=== PATIENT | male | born 1945 | race Caucasian/White ===

== ENCOUNTER 2019-02-24 11:29 | Emergency (ER) | payer MEDICARE, OTHER ==
--- NOTE | 2019-02-24 12:37 | EDM.PDOC ---
ED HPI GENERAL MEDICAL PROBLEM - General Chief Complaint: Lower Extremity Injury/Pain Stated Complaint: TWISTED RT KNEE GOING UP STAIRS Time Seen by Provider: 02/24/19 11:47 - History of Present Illness INITIAL COMMENTS - FREE TEXT/NARRATIVE: was getting up to go up stairs and felt a pop to his right knee and then severe pain. Has been using ibuprofen for pain. Hurts to bear weight Hx of surgery to this knee Is from [place]. No PCP here; will be here until mid March. Duration: Day(s): (1) Location: Reports: Lower Extremity, Right Quality: Reports: Sharp, Throbbing Severity: Moderate Improves with: Reports: None Worsens with: Reports: None - Related Data Allergies Allergy/AdvReac Type Severity Reaction Status Date / Time nafcillin Allergy Swelling Verified 02/24/19 12:16 rifamycin Allergy Swelling Verified 02/24/19 12:16 Home Meds: Home Meds Aspirin 02/24/19 [History] Atenolol 02/24/19 [History] Benazepril [Lotensin] 02/24/19 [History] Gabapentin [Neurontin] 02/24/19 [History] Glucosamine Sulfate 02/24/19 [History] Hyoscyamine Sulfate 02/24/19 [History] Levothyroxine 02/24/19 [History] Pioglitazone [Actos] 02/24/19 [History] Sildenafil [Revatio] 02/24/19 [History] SitaGLIPtin [Januvia] 02/24/19 [History] Sotalol [Betapace] 02/24/19 [History] amLODIPine Besylate [Amlodipine Besylate] 02/24/19 [History] glipiZIDE [Glucotrol XL] 02/24/19 [History] Past Medical History Cardiovascular History: Reports: High Cholesterol, Hypertension, Pacemaker Endocrine/Metabolic History: Reports: Diabetes, Type II - Past Surgical History HEENT Surgical History: Reports: Tonsillectomy GI Surgical History: Reports: Appendectomy, Hernia Repair/Other Musculoskeletal Surgical History: Reports: Arthroscopic Knee, Shoulder Surgery Social & Family History - Tobacco Use Smoking Status *Q: Never Smoker Review of Systems - Review of Systems Review Of Systems: ROS reveals no pertinent complaints other than HPI. Constitutional: Reports: No Symptoms Respiratory: Reports: No Symptoms Cardiovascular: Reports: No Symptoms Genitourinary: Reports: No Symptoms Musculoskeletal: Reports: Joint Pain Skin: Reports: No Symptoms Neurological: Reports: No Symptoms Psychiatric: Reports: No Symptoms ED EXAM, GENERAL - Physical Exam Exam: See Below Exam Limited By: No Limitations General Appearance: Alert, WD/WN, No Apparent Distress Head: Atraumatic, Normocephalic Neck: Supple, Full Range of Motion Respiratory/Chest: Lungs Clear, Normal Breath Sounds Cardiovascular: Regular Rate, Rhythm Peripheral Pulses: 4+: Posterior Tibial (R), Dorsalis Pedis (R) Extremities: Normal Inspection, Limited Range of Motion, Other (+dp and pt pulses, neg ant drawer, +cms) Neurological: Alert, Oriented, CN II-XII Intact Psychiatric: Normal Affect, Normal Mood Skin Exam: Warm, Dry, Intact Course - Vital Signs Last Recorded V/S: Last Vital Signs Temp 95.5 F 02/24/19 12:22 Pulse 73 02/24/19 12:22 Resp 20 02/24/19 12:22 BP 146/86 H 02/24/19 12:22 Pulse Ox 97 02/24/19 12:22 - Orders/Labs/Meds Orders: Active Orders 24 hr Category Date Time Status Knee 3V Rt [CR] Stat Exams 02/24/19 12:32 Taken Departure - Departure Time of Disposition: 14:00 Disposition: Home, Self-Care 01 Condition: Good Clinical Impression: Right knee pain Qualifiers: Chronicity: acute Qualified Code(s): M25.561 - Pain in right knee - Discharge Information *PRESCRIPTION DRUG MONITORING PROGRAM REVIEWED*: Not Applicable *COPY OF PRESCRIPTION DRUG MONITORING REPORT IN PATIENT LADI: Not Applicable Instructions: Knee Pain, Adult Referrals: PCP,None [Primary Care Provider] - Forms: ED Department Discharge Additional Instructions: Please call for follow up appointment on Tuesday; ([phone] [facility]) Shoot for appt within the next 7-10 days Ice for swelling/pain control Ibuprofen for pain/ Tylenol can be used as well. Call with questions. Use immobilizer until you are told otherwise. - Problem List & Annotations (1) Right knee pain SNOMED Code(s): 23271753 Code(s): M25.561 - PAIN IN RIGHT KNEE Status: Acute Priority: Low Qualifiers: Chronicity: acute Qualified Code(s): M25.561 - Pain in right knee - Problem List Review Problem List Initiated/Reviewed/Updated: Yes - My Orders Last 24 Hours: My Active Orders 02/24/19 12:32 Knee 3V Rt [CR] Stat - Assessment/Plan Last 24 Hours: My Active Orders 02/24/19 12:32 Knee 3V Rt [CR] Stat
--- NOTE | 2019-02-24 15:22 | CRLCR ---
HISTORY: Knee pain. FINDINGS: Three views of the right knee are provided. There are no findings for fracture or dislocation. 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 There is extensive chondrocalcinosis present consistent with likely calcium pyrophosphate deposition disease. Diffuse vascular calcification is noted as well as additional calcifications in the anterior soft tissues in the region of the patella and quadriceps tendon. IMPRESSION: Negative study for fracture. Dictated by Humberto Munguia MD @ Feb 24 2019 3:19PM Signed by Dr. Humberto Munguia @ Feb 24 2019 3:21PM
== END 2019-02-24 13:38 | disposition home or self-care (01) ==
LOC: JP.ED 11:29
DX: M25.561 Pain in right knee (principal); I10 Essential (primary) hypertension; E11.9 Type 2 diabetes mellitus without complications; Z95.0 Presence of cardiac pacemaker; Z79.899 Other long term (current) drug therapy; Z98.890 Other specified postprocedural states; Z90.49 Acquired absence of other specified parts of digestive tract; Z88.1 Allergy status to other antibiotic agents; X50.9XXA Other and unspecified overexertion or strenuous movements or postures, initial encounter
CPT/HCPCS: 73562-RT; 99282; 99283-25